=== PATIENT | male | born 1970 | race Caucasian/White ===

== ENCOUNTER 2016-03-18 20:29 | Emergency (ER) | payer MEDICAID | END 2016-03-18 21:15 | disposition home or self-care (01) | LOC: D.ER 20:29 | DX: S80.02XA Contusion of left knee, initial encounter (principal); W19.XXXA Unspecified fall, initial encounter; Y93.89 Activity, other specified; Y92.89 Other specified places as the place of occurrence of the external cause ==

== ENCOUNTER 2016-04-01 16:22 | Emergency (ER) | payer MEDICAID ==
[2016-04-01 16:58] LABS: BASOPHILS 0.1 % (0.0-2.0); EOSINOPHILS 2.3 % (0-7); HEMATOCRIT 44.8 % (42.0-54.0); HEMOGLOBIN 14.7 g/dL (13.5-17.5); IMMATURE GRANULOCYTES 0.4 % (0-5); LYMPHOCYTES 31.9 % (15-50); MCH 30.8 pg (26.0-34.0); MCHC 32.8 g/dL (31.0-37.0); MCV 93.7 fL (80.0-100.0); MEAN PLATELET VOLUME 9.8 fL (7.4-10.4); MONOCYTES 11.1 % (2-11); NEUTROPHILS 54.2 % (40-80); PLATELET COUNT 297 10x3/uL (130-400); RBC 4.78 10x6/uL (4.20-6.10); WBC 10.2 10x3/uL (4.8-10.8)
[2016-04-01 16:59] LABS: APPEARANCE CLEAR (CLEAR); BILIRUBIN NEGATIVE (NEGATIVE); COLOR YELLOW (YELLOW); GLUCOSE NEGATIVE (NEGATIVE); KETONE NEGATIVE (NEGATIVE); LEUKOCYTE ESTERASE NEGATIVE (NEGATIVE); NITRITE NEGATIVE (NEGATIVE); PH 6.5 (5.0-6.0); PROTEIN NEGATIVE (NEGATIVE)
[2016-04-01 17:06] LABS: UDS - AMPHET NEGATIVE QUAL (NEGATIVE); UDS - BARB NEGATIVE QUAL (NEGATIVE); UDS - BENZO NEGATIVE QUAL (NEGATIVE); UDS - COCAINE NEGATIVE QUAL (NEGATIVE); UDS - METH NEGATIVE QUAL (NEGATIVE); UDS - OPIATE NEGATIVE QUAL (NEGATIVE); UDS - PCP NEGATIVE QUAL (NEGATIVE); UDS - THC POSITIVE QUAL (NEGATIVE)
[2016-04-01 17:22] LABS: ALBUMIN 3.4 g/dL (3.4-5.0); ALKALINE PHOSPHATASE 116 U/L (46-116); ALT (SGPT) 28 U/L (10-68); BILIRUBIN - TOTAL 0.67 mg/dL (0.2-1.3); CALC OSMOLALITY 281 mosm/kg (275-300); CALCIUM 8.8 mg/dL (8.5-10.1); CARBON DIOXIDE 28.9 mmol/L (21.0-32.0); CHLORIDE - SERUM 104 mmol/L (98-107); CREATININE - SERUM 0.8 mg/dL (0.6-1.3); GLUCOSE 111 mg/dL (74-106); POTASSIUM - SERUM 3.6 mmol/L (3.5-5.1); SODIUM 142 mmol/L (136-145); UREA NITROGEN 6 mg/dL (7-18); eGFR NON AFRICAN AMERICAN > 90 mL/min (90-120)
== END 2016-04-01 22:45 | disposition short-term general hospital (02) ==
LOC: D.ER 16:22
PROVIDERS: Emergency Medicine
DX: F23 Brief psychotic disorder (principal); R45.851 Suicidal ideations; F31.9 Bipolar disorder, unspecified; F17.200 Nicotine dependence, unspecified, uncomplicated

== ENCOUNTER 2016-11-27 09:45 | Emergency (ER) | payer MEDICAID | END 2016-11-27 10:34 | disposition home or self-care (01) | LOC: D.ER 09:45 | DX: Z87.09 Personal history of other diseases of the respiratory system (principal); J06.9 Acute upper respiratory infection, unspecified; J20.9 Acute bronchitis, unspecified; F17.200 Nicotine dependence, unspecified, uncomplicated ==

== ENCOUNTER 2017-07-03 20:05 | Emergency (ER) | payer MEDICAID ==
[2017-07-03 21:05] LABS: BASOPHILS 0.2 % (0-2); EOSINOPHILS 0.7 % (0-7); HEMATOCRIT 46.9 % (42.0-54.0); HEMOGLOBIN 16.1 g/dL (13.5-17.5); IMMATURE GRANULOCYTES 0.4 % (0-5); LYMPHOCYTES 16.1 % (15-50); MCH 31.5 pg (26.0-34.0); MCHC 34.3 g/dL (31.0-37.0); MCV 91.8 fL (80.0-100.0); MEAN PLATELET VOLUME 9.9 fL (7.4-10.4); MONOCYTES 7.5 % (2-11); NEUTROPHILS 75.1 % (40-80); PLATELET COUNT 261 10x3/uL (130-400); RBC 5.11 10x6/uL (4.20-6.10); RDW 13.1 % (11.5-14.5); WBC 19.2 10x3/uL (4.8-10.8)
== END 2017-07-03 22:18 | disposition home or self-care (01) ==
LOC: D.ER 20:05
PROVIDERS: Emergency Medicine
DX: J20.9 Acute bronchitis, unspecified (principal); F17.200 Nicotine dependence, unspecified, uncomplicated

== ENCOUNTER 2017-09-13 12:00 | Emergency (ER) | payer MEDICAID ==
[~2017-09-13] VITALS: Ht 177.8 cm; Wt 86.2 kg
[2017-09-13 12:13] VITALS: Ht 177.8 cm; Wt 86.2 kg
[2017-09-13] MEDS ORDERED: VALIUM10 MG PO (12:34)
[2017-09-13] MEDS ORDERED: PROZAC20 MG (12:34)
[2017-09-13] MEDS ORDERED: REXULTI1 MG (12:41)
[2017-09-13] MEDS ORDERED: BENZTROPINE MESY1 MG (12:42)
[2017-09-13] MEDS ORDERED: THORAZINE50 MG (12:43)
[2017-09-13 12:55] LABS: BASOPHILS 0.2 % (0-2); EOSINOPHILS 0.7 % (0-7); HEMATOCRIT 46.1 % (42.0-54.0); HEMOGLOBIN 15.8 g/dL (13.5-17.5); IMMATURE GRANULOCYTES 0.4 % (0-5); LYMPHOCYTES 19.4 % (15-50); MCH 31.4 pg (26.0-34.0); MCHC 34.3 g/dL (31.0-37.0); MCV 91.7 fL (80.0-100.0); MEAN PLATELET VOLUME 10.2 fL (7.4-10.4); MONOCYTES 8.9 % (2-11); NEUTROPHILS 70.4 % (40-80); PLATELET COUNT 261 10x3/uL (130-400); RBC 5.03 10x6/uL (4.20-6.10); RDW 13.2 % (11.5-14.5); WBC 11.3 10x3/uL (4.8-10.8)
[2017-09-13 13:15] LABS: ALBUMIN 3.7 g/dL (3.4-5.0); ALKALINE PHOSPHATASE 94 U/L (46-116); ALT (SGPT) 16 U/L (10-68); BILIRUBIN - TOTAL 0.87 mg/dL (0.2-1.3); CALC OSMOLALITY 273 mosm/kg (275-300); CARBON DIOXIDE 28.1 mmol/L (21.0-32.0); CHLORIDE - SERUM 102 mmol/L (98-107); CREATININE - SERUM 0.9 mg/dL (0.6-1.3); GLUCOSE 87 mg/dL (74-106); POTASSIUM - SERUM 3.4 mmol/L (3.5-5.1); PROTEIN - SERUM 7.5 g/dL (6.4-8.2); SODIUM 137 mmol/L (136-145); UREA NITROGEN 14 mg/dL (7-18); eGFR NON AFRICAN AMERICAN > 90 mL/min (90-120)
[2017-09-13 15:55] LABS: UDS - AMPHET POSITIVE QUAL (NEGATIVE); UDS - BARB NEGATIVE QUAL (NEGATIVE); UDS - BENZO POSITIVE QUAL (NEGATIVE); UDS - COCAINE NEGATIVE QUAL (NEGATIVE); UDS - OPIATE NEGATIVE QUAL (NEGATIVE); UDS - PCP NEGATIVE QUAL (NEGATIVE); UDS - THC POSITIVE QUAL (NEGATIVE)
[2017-09-13 16:00] LABS: APPEARANCE CLEAR (CLEAR); BILIRUBIN 1+ (NEGATIVE); COLOR AMBER (YELLOW); GLUCOSE NEGATIVE (NEGATIVE); KETONE LARGE mg/dL (NEGATIVE); NITRITE NEGATIVE (NEGATIVE); PROTEIN NEGATIVE (NEGATIVE)
[2017-09-13 16:01] LABS: BACTERIA FEW /hpf (NONE SEEN); MUCUS <1+ /lpf (NONE SEEN); RED CELLS - URINE 0-5 /hpf (0-5); WHITE CELLS - URINE 0-5 /hpf (0-5)
[2017-09-13 21:36] VITALS: BP 98/60
== END 2017-09-13 22:10 ==
LOC: D.ER 12:00
PROVIDERS: Emergency Medicine
DX: R45.850 Homicidal ideations (principal); F20.9 Schizophrenia, unspecified; F17.200 Nicotine dependence, unspecified, uncomplicated

== ENCOUNTER 2017-10-07 15:03 | Emergency (ER) | payer MEDICAID ==
[~2017-10-07] VITALS: Ht 177.8 cm; Wt 72.7 kg
[~2017-10-07 15:03] MED LIST: BENZTROPINE MESY1 MG; PROZAC20 MG; REXULTI1 MG; THORAZINE50 MG; VALIUM10 MG PO
[2017-10-07 15:05] VITALS: Ht 177.8 cm; Wt 72.7 kg
[2017-10-07 15:35] LABS: APPEARANCE HAZY (CLEAR); BILIRUBIN 2+ (NEGATIVE); COLOR ORANGE (YELLOW); GLUCOSE NEGATIVE (NEGATIVE); KETONE MODERATE mg/dL (NEGATIVE); NITRITE NEGATIVE (NEGATIVE); PROTEIN NEGATIVE (NEGATIVE)
[2017-10-07 15:36] LABS: RED CELLS - URINE 0-5 /hpf (0-5)
[2017-10-07 15:37] LABS: BACTERIA FEW /hpf (NONE SEEN); MUCUS <1+ /lpf (NONE SEEN)
[2017-10-07 15:46] LABS: UDS - AMPHET POSITIVE QUAL (NEGATIVE); UDS - BARB NEGATIVE QUAL (NEGATIVE); UDS - BENZO POSITIVE QUAL (NEGATIVE); UDS - COCAINE NEGATIVE QUAL (NEGATIVE); UDS - OPIATE NEGATIVE QUAL (NEGATIVE); UDS - PCP NEGATIVE QUAL (NEGATIVE); UDS - THC POSITIVE QUAL (NEGATIVE)
[2017-10-07 15:51] LABS: BASOPHILS 0.1 % (0-2); EOSINOPHILS 0.8 % (0-7); HEMATOCRIT 48.8 % (42.0-54.0); HEMOGLOBIN 16.8 g/dL (13.5-17.5); IMMATURE GRANULOCYTES 0.3 % (0-5); LYMPHOCYTES 18.3 % (15-50); MCH 31.5 pg (26.0-34.0); MCHC 34.4 g/dL (31.0-37.0); MCV 91.6 fL (80.0-100.0); MEAN PLATELET VOLUME 10.4 fL (7.4-10.4); MONOCYTES 10.9 % (2-11); NEUTROPHILS 69.6 % (40-80); PLATELET COUNT 269 10x3/uL (130-400); RBC 5.33 10x6/uL (4.20-6.10); RDW 13.4 % (11.5-14.5)
[2017-10-07 16:13] LABS: ALBUMIN 4.1 g/dL (3.4-5.0); ANION GAP 15.3 mmol/L (8-16); BILIRUBIN - TOTAL 1.84 mg/dL (0.2-1.3); CALCIUM 9.2 mg/dL (8.5-10.1); CARBON DIOXIDE 27.8 mmol/L (21.0-32.0); CREATININE - SERUM 1.2 mg/dL (0.6-1.3); POTASSIUM - SERUM 4.1 mmol/L (3.5-5.1)
[2017-10-08 07:21] VITALS: BP 101/076
== END 2017-10-08 07:23 ==
LOC: D.ER 15:03
PROVIDERS: Family Medicine
DX: R45.851 Suicidal ideations (principal); F20.9 Schizophrenia, unspecified; F17.200 Nicotine dependence, unspecified, uncomplicated

== ENCOUNTER 2017-10-10 16:04 | Emergency (ER) | payer MEDICAID ==
[~2017-10-10] VITALS: Ht 177.8 cm; Wt 81.6 kg
[2017-10-10 16:12] VITALS: Ht 177.8 cm; Wt 81.6 kg
[2017-10-10 16:34] LABS: BASOPHILS 0.2 % (0-2); EOSINOPHILS 1.4 % (0-7); HEMATOCRIT 44.2 % (42.0-54.0); HEMOGLOBIN 15.3 g/dL (13.5-17.5); IMMATURE GRANULOCYTES 0.2 % (0-5); MCH 31.4 pg (26.0-34.0); MCHC 34.6 g/dL (31.0-37.0); MCV 90.6 fL (80.0-100.0); MEAN PLATELET VOLUME 10.6 fL (7.4-10.4); NEUTROPHILS 60.2 % (40-80); RBC 4.88 10x6/uL (4.20-6.10); RDW 13.2 % (11.5-14.5); WBC 8.9 10x3/uL (4.8-10.8)
[2017-10-10 16:36] LABS: PLATELET COUNT 208 10x3/uL (130-400)
[2017-10-10 16:41] LABS: UDS - AMPHET NEGATIVE QUAL (NEGATIVE); UDS - BARB NEGATIVE QUAL (NEGATIVE); UDS - BENZO POSITIVE QUAL (NEGATIVE); UDS - COCAINE NEGATIVE QUAL (NEGATIVE); UDS - OPIATE NEGATIVE QUAL (NEGATIVE); UDS - PCP NEGATIVE QUAL (NEGATIVE); UDS - THC POSITIVE QUAL (NEGATIVE)
[2017-10-10 16:50] LABS: ALBUMIN 3.5 g/dL (3.4-5.0); ALKALINE PHOSPHATASE 88 U/L (46-116); ALT (SGPT) 19 U/L (10-68); BILIRUBIN - TOTAL 0.43 mg/dL (0.2-1.3); CALC OSMOLALITY 276 mosm/kg (275-300); CALCIUM 8.5 mg/dL (8.5-10.1); CARBON DIOXIDE 25.8 mmol/L (21.0-32.0); CHLORIDE - SERUM 103 mmol/L (98-107); CREATININE - SERUM 1.1 mg/dL (0.6-1.3); GLUCOSE 110 mg/dL (74-106); POTASSIUM - SERUM 4.1 mmol/L (3.5-5.1); SODIUM 138 mmol/L (136-145); UREA NITROGEN 13 mg/dL (7-18); eGFR NON AFRICAN AMERICAN 76 mL/min (90-120)
[2017-10-10 16:53] LABS: APPEARANCE CLEAR (CLEAR); BILIRUBIN NEGATIVE (NEGATIVE); COLOR YELLOW (YELLOW); GLUCOSE NEGATIVE (NEGATIVE); KETONE NEGATIVE (NEGATIVE); NITRITE NEGATIVE (NEGATIVE); PROTEIN NEGATIVE (NEGATIVE); UROBILINOGEN NORMAL (NORMAL)
[2017-10-10 18:35] VITALS: BP 125/084
== END 2017-10-10 18:37 | disposition left against medical advice (07) ==
LOC: D.ER 16:04
PROVIDERS: Family Medicine
DX: Z76.5 Malingerer [conscious simulation] (principal); R45.850 Homicidal ideations; R45.851 Suicidal ideations; F17.200 Nicotine dependence, unspecified, uncomplicated

== ENCOUNTER 2017-12-06 08:57 | Emergency (ER) | payer MEDICAID ==
[~2017-12-06] VITALS: Ht 177.8 cm; Wt 81.8 kg
[2017-12-06 09:02] VITALS: Ht 177.8 cm; Wt 81.8 kg
[2017-12-06] MEDS ORDERED: SEROQUEL200 MG PO (09:04)
[2017-12-06] MEDS ORDERED: HYDROCODON-ACE1 EAC7 PO (09:04)
[2017-12-06] MEDS ORDERED: TORADOL10 MG PO (11:20)
[2017-12-06 12:26] VITALS: BP 113/84
== END 2017-12-06 12:27 | disposition home or self-care (01) ==
LOC: D.ER 08:57
DX: M54.2 Cervicalgia (principal); Z86.59 Personal history of other mental and behavioral disorders; F17.200 Nicotine dependence, unspecified, uncomplicated

== ENCOUNTER 2017-12-16 17:39 | Emergency (ER) | payer MEDICAID ==
[~2017-12-16] VITALS: Ht 177.8 cm; Wt 76.4 kg
[~2017-12-16 17:39] MED LIST changes: +HYDROCODON-ACE1 EAC7 PO; +SEROQUEL200 MG PO; +TORADOL10 MG PO
[2017-12-16 17:43] VITALS: Ht 177.8 cm; Wt 76.4 kg
[2017-12-16] MEDS ORDERED: VALIUM10 MG PO (17:45)
[2017-12-16 18:23] LABS: APPEARANCE CLEAR (CLEAR); BILIRUBIN 1+ (NEGATIVE); COLOR DK YELLOW (YELLOW); GLUCOSE NEGATIVE (NEGATIVE); KETONE NEGATIVE (NEGATIVE); NITRITE NEGATIVE (NEGATIVE); PROTEIN NEGATIVE (NEGATIVE); SPECIFIC GRAVITY 1.025 (1.005-1.020)
[2017-12-16 18:24] LABS: BACTERIA MODERATE /hpf (NONE SEEN); EPITHELIAL CELLS 0-5 /hpf (0-5); WHITE CELLS - URINE 0-5 /hpf (0-5)
[2017-12-16 18:33] LABS: BASOPHILS 0.2 % (0-2); EOSINOPHILS 1.6 % (0-7); HEMATOCRIT 45.1 % (42.0-54.0); HEMOGLOBIN 15.9 g/dL (13.5-17.5); IMMATURE GRANULOCYTES 0.4 % (0-5); LYMPHOCYTES 24.4 % (15-50); MCH 32.1 pg (26.0-34.0); MCHC 35.3 g/dL (31.0-37.0); MCV 90.9 fL (80.0-100.0); MEAN PLATELET VOLUME 10.3 fL (7.4-10.4); MONOCYTES 11.2 % (2-11); NEUTROPHILS 62.2 % (40-80); RBC 4.96 10x6/uL (4.20-6.10); RDW 13.2 % (11.5-14.5); WBC 11.4 10x3/uL (4.8-10.8)
[2017-12-16 18:35] LABS: PLATELET COUNT 284 10x3/uL (130-400)
[2017-12-16 18:38] LABS: ALBUMIN 3.5 g/dL (3.4-5.0); ALKALINE PHOSPHATASE 95 U/L (46-116); ALT (SGPT) 22 U/L (10-68); BILIRUBIN - TOTAL 0.58 mg/dL (0.2-1.3); CALC OSMOLALITY 280 mosm/kg (275-300); CALCIUM 9.1 mg/dL (8.5-10.1); CARBON DIOXIDE 22.2 mmol/L (21.0-32.0); CHLORIDE - SERUM 105 mmol/L (98-107); CREATININE - SERUM 1.1 mg/dL (0.6-1.3); GLUCOSE 114 mg/dL (74-106); POTASSIUM - SERUM 3.9 mmol/L (3.5-5.1); PROTEIN - SERUM 7.1 g/dL (6.4-8.2); SODIUM 140 mmol/L (136-145); UREA NITROGEN 14 mg/dL (7-18); eGFR NON AFRICAN AMERICAN 76 mL/min (90-120)
[2017-12-16 19:29] LABS: UDS - AMPHET NEGATIVE QUAL (NEGATIVE); UDS - BARB NEGATIVE QUAL (NEGATIVE); UDS - BENZO NEGATIVE QUAL (NEGATIVE); UDS - COCAINE NEGATIVE QUAL (NEGATIVE); UDS - OPIATE NEGATIVE QUAL (NEGATIVE); UDS - PCP NEGATIVE QUAL (NEGATIVE); UDS - THC POSITIVE QUAL (NEGATIVE)
[2017-12-16 21:42] VITALS: BP 138/50
== END 2017-12-16 21:51 ==
LOC: D.ER 17:39
PROVIDERS: Emergency Medicine
DX: F20.0 Paranoid schizophrenia (principal); F17.200 Nicotine dependence, unspecified, uncomplicated

== ENCOUNTER 2018-01-06 05:43 | Emergency (ER) | payer MEDICAID ==
[~2018-01-06] VITALS: Ht 177.8 cm; Wt 95.5 kg
[~2018-01-06 05:43] MED LIST changes: -PROZAC20 MG; +PROZAC20 MG PO
[2018-01-06 05:49] VITALS: Ht 177.8 cm; Wt 95.5 kg
[2018-01-06] MEDS ORDERED: ALBUTEROL SULF8.5 GM INH (05:57)
[2018-01-06 06:22] LABS: UDS - AMPHET POSITIVE QUAL (NEGATIVE); UDS - BARB NEGATIVE QUAL (NEGATIVE); UDS - BENZO POSITIVE QUAL (NEGATIVE); UDS - COCAINE NEGATIVE QUAL (NEGATIVE); UDS - OPIATE NEGATIVE QUAL (NEGATIVE); UDS - PCP NEGATIVE QUAL (NEGATIVE); UDS - THC POSITIVE QUAL (NEGATIVE)
[2018-01-06 06:40] LABS: CALC OSMOLALITY 270 mosm/kg (275-300); CALCIUM 9.1 mg/dL (8.5-10.1); CARBON DIOXIDE 27.3 mmol/L (21.0-32.0); CHLORIDE - SERUM 99 mmol/L (98-107); GLUCOSE 98 mg/dL (74-106); POTASSIUM - SERUM 3.6 mmol/L (3.5-5.1); SODIUM 136 mmol/L (136-145); THYROID STIMULATING HORMONE 1.22 uIU/mL (0.36-3.74); UREA NITROGEN 9 mg/dL (7-18); eGFR NON AFRICAN AMERICAN 85 mL/min (90-120)
[2018-01-06 06:53] LABS: APPEARANCE CLEAR (CLEAR); COLOR YELLOW (YELLOW); GLUCOSE NEGATIVE (NEGATIVE); NITRITE NEGATIVE (NEGATIVE); PROTEIN 2+ mg/dL (NEGATIVE)
[2018-01-06 06:54] LABS: BILIRUBIN NEGATIVE (NEGATIVE); KETONE MODERATE mg/dL (NEGATIVE); RED CELLS - URINE 0-5 /hpf (0-5); WHITE CELLS - URINE 0-5 /hpf (0-5)
[2018-01-06 07:18] LABS: BASOPHILS 0.2 % (0-2); EOSINOPHILS 1.1 % (0-7); HEMATOCRIT 47.6 % (42.0-54.0); HEMOGLOBIN 16.7 g/dL (13.5-17.5); IMMATURE GRANULOCYTES 0.5 % (0-5); LYMPHOCYTES 16.5 % (15-50); MCH 32.4 pg (26.0-34.0); MCHC 35.1 g/dL (31.0-37.0); MCV 92.4 fL (80.0-100.0); MEAN PLATELET VOLUME 10.4 fL (7.4-10.4); MONOCYTES 9.6 % (2-11); NEUTROPHILS 72.1 % (40-80); PLATELET COUNT 286 10x3/uL (130-400); RBC 5.15 10x6/uL (4.20-6.10); RDW 13.4 % (11.5-14.5); WBC 12.7 10x3/uL (4.8-10.8)
[2018-01-06 07:29] LABS: ALBUMIN 4.1 g/dL (3.4-5.0); ALKALINE PHOSPHATASE 108 U/L (46-116); ALT (SGPT) 34 U/L (10-68); BILIRUBIN - DIRECT 0.22 mg/dL (0.00-0.30); BILIRUBIN - INDIRECT 1.18 mg/dL (0.00-1.00); PROTEIN - SERUM 8.2 g/dL (6.4-8.2)
[2018-01-06 16:49] VITALS: BP 120/84
== END 2018-01-06 19:34 | disposition other institution (70) ==
LOC: D.ER 05:43
PROVIDERS: Emergency Medicine; Family Medicine
DX: F23 Brief psychotic disorder (principal); F12.10 Cannabis abuse, uncomplicated; F15.10 Other stimulant abuse, uncomplicated; F13.10 Sedative, hypnotic or anxiolytic abuse, uncomplicated; R45.850 Homicidal ideations; F17.200 Nicotine dependence, unspecified, uncomplicated

== ENCOUNTER 2018-01-19 13:21 | Emergency (ER) | payer MEDICAID ==
[~2018-01-19] VITALS: Ht 177.8 cm; Wt 85.9 kg
[~2018-01-19 13:21] MED LIST changes: +ALBUTEROL SULF8.5 GM INH
[2018-01-19 13:27] VITALS: Ht 177.8 cm; Wt 85.9 kg
[2018-01-19 14:02] LABS: BASOPHILS 0.2 % (0-2); EOSINOPHILS 1.7 % (0-7); HEMATOCRIT 43.8 % (42.0-54.0); HEMOGLOBIN 15.2 g/dL (13.5-17.5); IMMATURE GRANULOCYTES 0.4 % (0-5); LYMPHOCYTES 22.2 % (15-50); MCH 32.4 pg (26.0-34.0); MCHC 34.7 g/dL (31.0-37.0); MCV 93.4 fL (80.0-100.0); MEAN PLATELET VOLUME 10.2 fL (7.4-10.4); MONOCYTES 12.7 % (2-11); NEUTROPHILS 62.8 % (40-80); PLATELET COUNT 244 10x3/uL (130-400); RBC 4.69 10x6/uL (4.20-6.10); RDW 13.4 % (11.5-14.5)
[2018-01-19 14:15] LABS: ALBUMIN 3.6 g/dL (3.4-5.0); ALKALINE PHOSPHATASE 98 U/L (46-116); ALT (SGPT) 38 U/L (10-68); BILIRUBIN - TOTAL 0.41 mg/dL (0.2-1.3); CALC OSMOLALITY 271 mosm/kg (275-300); CALCIUM 8.7 mg/dL (8.5-10.1); CARBON DIOXIDE 21.9 mmol/L (21.0-32.0); CHLORIDE - SERUM 102 mmol/L (98-107); CREATININE - SERUM 0.9 mg/dL (0.6-1.3); GLUCOSE 107 mg/dL (74-106); POTASSIUM - SERUM 3.8 mmol/L (3.5-5.1); PROTEIN - SERUM 7.2 g/dL (6.4-8.2); SODIUM 135 mmol/L (136-145); UREA NITROGEN 17 mg/dL (7-18); eGFR NON AFRICAN AMERICAN > 90 mL/min (90-120)
[2018-01-19 14:31] LABS: APPEARANCE CLEAR (CLEAR); BILIRUBIN NEGATIVE (NEGATIVE); COLOR YELLOW (YELLOW); GLUCOSE NEGATIVE (NEGATIVE); KETONE NEGATIVE (NEGATIVE); NITRITE NEGATIVE (NEGATIVE); PROTEIN NEGATIVE (NEGATIVE); SPECIFIC GRAVITY 1.015 (1.005-1.020); UROBILINOGEN NORMAL (NORMAL)
[2018-01-19] MEDS ORDERED: CHLORPROMAZINE200 MG PO (14:33)
[2018-01-19] MEDS ORDERED: ZYPREXA20 MG PO (14:35)
[2018-01-19 14:38] LABS: UDS - AMPHET NEGATIVE QUAL (NEGATIVE); UDS - BARB NEGATIVE QUAL (NEGATIVE); UDS - BENZO POSITIVE QUAL (NEGATIVE); UDS - COCAINE NEGATIVE QUAL (NEGATIVE); UDS - OPIATE NEGATIVE QUAL (NEGATIVE); UDS - PCP NEGATIVE QUAL (NEGATIVE); UDS - THC POSITIVE QUAL (NEGATIVE)
[2018-01-19 18:36] VITALS: BP 130/80
== END 2018-01-19 18:52 ==
LOC: D.ER 13:21
PROVIDERS: Emergency Medicine
DX: R45.851 Suicidal ideations (principal); F41.9 Anxiety disorder, unspecified; F32.9 Major depressive disorder, single episode, unspecified; F17.200 Nicotine dependence, unspecified, uncomplicated

== ENCOUNTER 2018-01-30 08:50 | Inpatient (IN) | payer MEDICAID ==
[~2018-01-30] VITALS: Ht 177.8 cm; Wt 90.9 kg
--- NOTE | ~2018-01-30 | MORECARE ---
CASE MANAGEMENT DISCHARGE SUMMARY PATIENT: GENO RECINOS UNIT: [id number] ADM DATE: 01/30/18 AGE: 47 : 68 SEX: M ROOM/BED: D.2223 AUTHOR: CODIE,DOC PHYSICIAN: REFERRING PHYSICIAN: FEDERICO SANTACRUZ MD DATE OF SERVICE: 01/31/18 Discharge Plan Patient Name: GENO RECINOS Facility: [facility]:[place] : 1970 Planned Disposition: Anticipated Discharge Date: Discharge Date: Expected LOS: Initial Reviewer: [email or web address] Initial Review Date: 01/30/2018 Generated: 01/31/18 4:12 pm Comments DCP- Discharge Planning Updated by [email or web address]: Rachna Varela on 01/31/18 2:[address] CM received call back from Dr. Azar. He informed CM that he attempted to see the patient in , but it was not the right patient. Dr. Azar informed CM that he will attempt to see patient in the morning. CM contacted Dr. Santacruz and notified him of status with Dr. Azar's consult. Dr Santacruz gave CM orders for clear liquid diet. CM will continue to follow and assist as needed. DCP- Discharge Planning Updated by [id number]: Prema Michelle on 01/31/18 1:[address] CM placed follow up call to Dr. Azar's office as no call returned yet. Miriam with Dr. Azar informed CM that the was in with a patient right now and would call CM back soon. MEREDITH informed Miriam that the patient is moving from E01 to 2223. Miriam verbalized understanding. CM will continue to follow. DCP- Discharge Planning Updated by [email or web address]: Prema Michelle on 01/31/18 11:[address] CM could not find any documentation in [facility] that Dr. Azar had been notified of consult order. MEREDITH called Dr. Azar's office and spoke with Miriam. Miriam informed CM that she had received a call from someone in the ER yesterday about the consult, but she informed them that Dr. Azar was not senior controls technician this week and he would not be in the office until 13:00. Miriam stated she informed that person to call their office back if the patient was still there at 13:00 and their office did not receive any further calls. MEREDITH informed Miriam that the patient is still here in the hospital. Informed Miriam of patient's Soft Tissue Neck CT results and WBC results. Informed Miriam of Dr. Santacruz's request for ETA and if patient can have liquids as he is NPO. Miriam took MEREDITH's phone number and stated she would have Dr. Azar call me back. MEREDITH informed Lesly Massey nurse wellness manager of status of consult. Last DP export: 01/31/18 1:18 Patient Name: GENO RECINOS Page [id number] at 1512 All edits/amendments must be made on the electronic document DICTATION DATE: 01/31/181511 INTERVENTIONAL RADIOLOGY TECH: DENYS 01/31/181511 RPT#: [id number] DC DATE: STATUS: ADM IN [facility] [address] [place] [address] END OF REPORT
--- NOTE | ~2018-01-30 | MORECARE ---
CASE MANAGEMENT DISCHARGE SUMMARY PATIENT: GENO RECINOS UNIT: [id number] ADM DATE: 01/30/18 AGE: 47 : 68 SEX: M ROOM/BED: D.E01 AUTHOR: KO MACKAY PHYSICIAN: REFERRING PHYSICIAN: FEDERICO SANTACRUZ MD DATE OF SERVICE: 01/31/18 Discharge Plan Patient Name: GENO RECINOS [facility] : 1970 Planned Disposition: Anticipated Discharge Date: Discharge Date: Expected LOS: Initial Reviewer: [email or web address] Initial Review Date: 01/30/2018 Generated: 01/31/18 1:24 pm DCP- Discharge Planning Updated by [email or web address]: Prema Michelle on 01/31/18 11:[address] CM could not find any documentation in [facility] that [facility] Azar had been notified of consult order. MEREDITH called Dr. Azar's office and spoke with Miriam. Miriam informed MEREDITH that she had received a call from someone in the ER yesterday about the consult, but she informed them that Dr. Azar was not construction project manager this week and he would not be in the office until 13:00. Miriam stated she informed that person to call their office back if the patient was still there at 13:00 and their office did not receive any further calls. MEREDITH informed Miriam that the patient is still here in the hospital. Informed Miriam of patient's Soft Tissue Neck CT results and WBC results. Informed Miriam of Dr. Santacruz's request for ETA and if patient can have liquids as he is NPO. Miriam took 's phone number and stated she would have Dr. Azar call me back. MEREDITH informed Lesly Massey nurse gas operation manager of status of consult. Last DP export: 01/31/18 11:17 Patient Name: GENO RECINOS Page [id number] at 1225 All edits/amendments must be made on the electronic document DICTATION DATE: 01/31/18 1224 BARBACK: DENYS 01/31/18 1224 RPT#: [id number] DC DATE: STATUS: ADM IN [facility] [address] [place] [address] END OF REPORT
--- NOTE | ~2018-01-30 | MORECARE ---
CASE MANAGEMENT DISCHARGE SUMMARY PATIENT: GENO RECINOS UNIT: [id number] ADM DATE: 01/30/18 AGE: 47 : 68 SEX: M ROOM/BED: D.2223 AUTHOR: CODIE,DOC PHYSICIAN: REFERRING PHYSICIAN: FEDERICO SANTACRUZ MD DATE OF SERVICE: 02/04/18 Discharge Plan Patient Name: GENO RECINOS Facility: [facility]:[place] : 1970 Planned Disposition: Home Anticipated Discharge Date: Discharge Date: 02/02/2018 Expected LOS: 0 Initial Reviewer: [email or web address] Initial Review Date: 01/30/2018 Generated: 02/04/18 5:34 pm Comments DCP- Discharge Planning Updated by [email or web address]: Rachna Varela on 02/01/18 3:[address] Patient Name: GENO RECINOS Admission Status: ER Accout number: [id number] Admission Date: 01-30-2018 : 1970 Admission Diagnosis: Attending: FEDERICO SANTACRUZ Current LOS: 2 Anticipated DC Date: Planned Disposition: Home Primary Insurance: MEDICAID [place] Discharge Planning Comments: CM met with patient to discuss discharge planning, he is alone in the room. States he is independent with all ADL's. States he does not drive. States he takes a bus or taxi when he needs to go somewhere. States he does use the [employer] bus and knows to call 48 hours in advance for appointments. States he will either take the [facility] or taxi when discharged. Declines need for home health. States he has [facility] that come in 3 hours a day for personal care. No needs identified at this time. CM will continue to follow and assist with discharge planning/needs. Can Maker: Rachna Varela DCP- Discharge Planning Updated by [email or web address]: Rachna Varela on 01/31/18 2:[address] CM received call back from Dr. Azar. He informed CM that he attempted to see the patient in , but it was not the right patient. Dr. Azar informed CM that he will attempt to see patient in the morning. CM contacted Dr. Santacruz and notified him of status with Dr. Azar's consult. Dr Santacruz gave CM orders for clear liquid diet. CM will continue to follow and assist as needed. DCP- Discharge Planning Updated by [email or web address]: Prema Michelle on 01/31/18 1:[address] CM placed follow up call to Dr. Azar's office as no call returned yet. Miriam with Dr. Azar informed CM that the was in with a patient right now and would call CM back soon. MEREDITH informed Miriam that the patient is moving from E01 to 2223. Miriam verbalized understanding. CM will continue to follow. DCP- Discharge Planning Updated by [email or web address]: Prema Michelle on 01/31/18 11:[address] CM could not find any documentation in [facility] that Dr. Azar had been notified of consult order. MEREDITH called Dr. Azar's office and spoke with Miriam. Miriam informed CM that she had received a call from someone in the ER yesterday about the consult, but she informed them that Dr. Azar was not television presenter this week and he would not be in the office until 13:00. Miriam stated she informed that person to call their office back if the patient was still there at 13:00 and their office did not receive any further calls. MEREDITH informed Miriam that the patient is still here in the hospital. Informed Miriam of patient's Soft Tissue Neck CT results and WBC results. Informed Miriam of Dr. Santacruz's request for ETA and if patient can have liquids as he is NPO. Miriam took CM's phone number and stated she would have Dr. Azar call me back. MEREDITH informed Lesly Massey nurse ecommerce project manager of status of consult. DCPIA - Discharge Planning Initial Assessment Updated by [id number]: Rachna Varela on 02/01/18 4:45 pm * Is the patient Alert and Oriented? Yes * How many steps to enter\exit or inside your home? 0/0 * PCP No PCP * Pharm[facility] * Preadmission Environment Home Alone * ADLs Independent * Equipment None * Verbal permission to speak to the caregivers and representatives has been obtained from the patient. N/A * Community resources currently utilized None * Additional services required to return to the preadmission environment? No * Can the patient safely return to the preadmission environment? Yes * Has this patient been hospitalized within the prior 30 days at any hospital? No Last DP export: 02/01/18 3:55 Patient Name: GENO RECINOS Page [id number] at 1634 All edits/amendments must be made on the electronic document DICTATION DATE: 02/04/181632 BLOOD BANK LABORATORY TECHNOLOGIST: DENYS 02/04/181632 RPT#: [id number] DC DATE:02/02/18 STATUS: DIS IN [facility] [address] [place] [address] END OF REPORT
--- NOTE | ~2018-01-30 | MORECARE ---
CASE MANAGEMENT DISCHARGE SUMMARY PATIENT: GENO RECINOS UNIT: [id number] ADM DATE: 01/30/18 AGE: 47 : 68 SEX: M ROOM/BED: D.2223 AUTHOR: CODIE,DOC PHYSICIAN: REFERRING PHYSICIAN: FEDERICO SANTACRUZ MD DATE OF SERVICE: 02/01/18 Discharge Plan Patient Name: GENO RECINOS Facility: [facility]:[place] : 1970 Planned Disposition: Home Anticipated Discharge Date: Discharge Date: Expected LOS: Initial Reviewer: [email or web address] Initial Review Date: 01/30/2018 Generated: 02/01/18 5:46 pm Comments DCP- Discharge Planning Updated by [email or web address]: Rachna Varela on 01/31/18 2:[address] CM received call back from Dr. Azar. He informed CM that he attempted to see the patient in , but it was not the right patient. Dr. Azar informed CM that he will attempt to see patient in the morning. CM contacted Dr. Santacruz and notified him of status with Dr. Azar's consult. Dr Santacruz gave CM orders for clear liquid diet. CM will continue to follow and assist as needed. DCP- Discharge Planning Updated by [email or web address]: Prema Michelle on 01/31/18 1:[address] CM placed follow up call to Dr. Azar's office as no call returned yet. Miriam with Dr. Azar informed CM that the was in with a patient right now and would call CM back soon. MEREDITH informed Miriam that the patient is moving from E01 to 2223. Miriam verbalized understanding. CM will continue to follow. DCP- Discharge Planning Updated by [email or web address]: Prema Michelle on 01/31/18 11:[address] CM could not find any documentation in [facility] that Dr. Azar had been notified of consult order. MEREDITH called Dr. Azar's office and spoke with Miriam. Miriam informed CM that she had received a call from someone in the ER yesterday about the consult, but she informed them that Dr. Azar was not integration software engineer this week and he would not be in the office until 13:00. Miriam stated she informed that person to call their office back if the patient was still there at 13:00 and their office did not receive any further calls. MEREDITH informed Miriam that the patient is still here in the hospital. Informed Miriam of patient's Soft Tissue Neck CT results and WBC results. Informed Miriam of Dr. Santacruz's request for ETA and if patient can have liquids as he is NPO. Miriam took CM's phone number and stated she would have Dr. Azar call me back. CM informed Lesly Massey nurse international account manager of status of consult. DCPIA - Discharge Planning Initial Assessment Updated by [email or web address]: Rachna Varela on 02/01/18 4:45 pm * Is the patient Alert and Oriented? Yes * How many steps to enter\exit or inside your home? 0/0 * PCP No PCP * Pharmacy [facility] * Preadmission Environment Home Alone * ADLs Independent * Equipment None * Verbal permission to speak to the caregivers and representatives has been obtained from the patient. N/A * Community resources currently utilized None * Additional services required to return to the preadmission environment? No * Can the patient safely return to the preadmission environment? Yes * Has this patient been hospitalized within the prior 30 days at any hospital? No Last DP export: 01/31/18 2:12 Patient Name: GENO RECINOS Page [id number] at 1646 All edits/amendments must be made on the electronic document DICTATION DATE: 02/01/181645 RELAY ASSOCIATE: DENYS 02/01/181645 RPT#: [id number] DC DATE: STATUS: ADM IN [facility] [address] [place] [address] END OF REPORT
--- NOTE | ~2018-01-30 | MORECARE ---
CASE MANAGEMENT DISCHARGE SUMMARY PATIENT: GENO RECINOS AIXA UNIT: [id number] ADM DATE: 01/30/18 AGE: 47 : [birth year] SEX: M ROOM/BED: D.E01 AUTHOR: KO MACKAY PHYSICIAN: REFERRING PHYSICIAN: FEDERICO SANTACRUZ MD DATE OF SERVICE: 01/31/18 Discharge Plan Patient Name: GENO RECINOS [facility] [facility] 1970 Planned Disposition: Anticipated Discharge Date: Discharge Date: Expected LOS: Initial Reviewer: [email or web address] Initial Review Date: 01/30/2018 Generated: 01/31/18 1:17 pm Patient Name: GENO RECINOS Page [phone] at 1217 All edits/amendments must be made on the electronic document DICTATION DATE: 01/31/18 1217 CAFE SERVER: DENYS 01/31/18 1217 RPT#: [id number] DC DATE: STATUS: ADM IN [facility] [address] [place] [address] END OF REPORT
--- NOTE | ~2018-01-30 | MORECARE ---
CASE MANAGEMENT DISCHARGE SUMMARY PATIENT: GENO RECINOS UNIT: [id number] ADM DATE: 01/30/18 AGE: 47 : 68 SEX: M ROOM/BED: D.2223 AUTHOR: CODIE,DOC PHYSICIAN: REFERRING PHYSICIAN: FEDERICO SANTACRUZ MD DATE OF SERVICE: 02/01/18 Discharge Plan Patient Name: GENO RECINOS Facility: [facility]:[place] : 1970 Planned Disposition: Home Anticipated Discharge Date: Discharge Date: Expected LOS: Initial Reviewer: [email or web address] Initial Review Date: 01/30/2018 Generated: 02/01/18 5:55 pm Comments DCP- Discharge Planning Updated by [email or web address]: Rachna Varela on 02/01/18 3:[address] Patient Name: GENO RECINOS Admission Status: ER Accout number: [id number] Admission Date: 01-30-2018 : 1970 Admission Diagnosis: Attending: FEDERICO SANTACRUZ Current LOS: 2 Anticipated DC Date: Planned Disposition: Home Primary Insurance: MEDICAID [place] Discharge Planning Comments: CM met with patient to discuss discharge planning, he is alone in the room. States he is independent with all ADL's. States he does not drive. States he takes a bus or taxi when he needs to go somewhere. States he does use the [employer] bus and knows to call 48 hours in advance for appointments. States he will either take the SC[facility] or taxi when discharged. Declines need for home health. States he has [facility] that come in 3 hours a day for personal care. No needs identified at this time. CM will continue to follow and assist with discharge planning/needs. Barn And Property Manager: Rachna Varela DCP- Discharge Planning Updated by [id number]: Rachna Varela on 01/31/18 2:[address] CM received call back from Dr. Azar. He informed CM that he attempted to see the patient in , but it was not the right patient. Dr. Azar informed CM that he will attempt to see patient in the morning. CM contacted Dr. Santacruz and notified him of status with Dr. Azar's consult. Dr Santacruz gave CM orders for clear liquid diet. CM will continue to follow and assist as needed. DCP- Discharge Planning Updated by [id number]: Prema Michelle on 01/31/18 1:[address] CM placed follow up call to Dr. Azar's office as no call returned yet. Miriam with Dr. Azar informed CM that the was in with a patient right now and would call CM back soon. MEREDITH informed Miriam that the patient is moving from E01 to 2223. Miriam verbalized understanding. CM will continue to follow. DCP- Discharge Planning Updated by [email or web address]: Prema Michelle on 01/31/18 11:[address] CM could not find any documentation in [facility] that Dr. Azar had been notified of consult order. MEREDITH called Dr. Azar's office and spoke with Miriam. Miriam informed CM that she had received a call from someone in the ER yesterday about the consult, but she informed them that Dr. Azar was not post tensioning ironworker this week and he would not be in the office until 13:00. Miriam stated she informed that person to call their office back if the patient was still there at 13:00 and their office did not receive any further calls. MEREDITH informed Miriam that the patient is still here in the hospital. Informed Miriam of patient's Soft Tissue Neck CT results and WBC results. Informed Miriam of Dr. Santacruz's request for ETA and if patient can have liquids as he is NPO. Miriam took 's phone number and stated she would have Dr. Azar call me back. MEREDITH informed Lesly Massey nurse research development manager of status of consult. DCPIA - Discharge Planning Initial Assessment Updated by [email or web address]: Rachna Varela on 02/01/18 4:45 pm * Is the patient Alert and Oriented? Yes * How many steps to enter\exit or inside your home? 0/0 * PCP No PCP * [facility] * Preadmission Environment Home Alone * ADLs Independent * Equipment None * Verbal permission to speak to the caregivers and representatives has been obtained from the patient. N/A * Community resources currently utilized None * Additional services required to return to the preadmission environment? No * Can the patient safely return to the preadmission environment? Yes * Has this patient been hospitalized within the prior 30 days at any hospital? No Last DP export: 02/01/18 3:46 Patient Name: GENO RECINOS Page [id number] at 1655 All edits/amendments must be made on the electronic document DICTATION DATE: 02/01/181654 SENIOR LEAD JAVA DEVELOPER: DENYS 02/01/181654 RPT#: [id number] DC DATE: STATUS: ADM IN [facility] [address] [place] [address] END OF REPORT
--- NOTE | ~2018-01-30 | MORECARE ---
CASE MANAGEMENT DISCHARGE SUMMARY PATIENT: GENO RECINOS UNIT: [id number] ADM DATE: 01/30/18 AGE: 47 : 68 SEX: M ROOM/BED: D.2223 AUTHOR: CODIE,DOC PHYSICIAN: REFERRING PHYSICIAN: FEDERICO SANTACRUZ MD DATE OF SERVICE: 01/31/18 Discharge Plan Patient Name: GENO RECINOS Facility: [facility]:[place] : 1970 Planned Disposition: Anticipated Discharge Date: Discharge Date: Expected LOS: Initial Reviewer: [email or web address] Initial Review Date: 01/30/2018 Generated: 01/31/18 3:18 pm Comments DCP- Discharge Planning Updated by [email or web address]: Prema Michelle on 01/31/18 1:[address] CM placed follow up call to Dr. Azar's office as no call returned yet. Miriam with Dr. Azar informed MEREDITH that the was in with a patient right now and would call CM back soon. MEREDITH informed Miriam that the patient is moving from E01 to 2223. Miriam verbalized understanding. MEREDITH will continue to follow. DCP- Discharge Planning Updated by [id number]: Prema Michelle on 01/31/18 11:[address] CM could not find any documentation in [facility] that Dr. Azar had been notified of consult order. MEREDITH called Dr. Azar's office and spoke with Miriam. Miriam informed MEREDITH that she had received a call from someone in the ER yesterday about the consult, but she informed them that Dr. Azar was not instrument/control technician this week and he would not be in the office until 13:00. Miriam stated she informed that person to call their office back if the patient was still there at 13:00 and their office did not receive any further calls. MEREDITH informed Miriam that the patient is still here in the hospital. Informed Miriam of patient's Soft Tissue Neck CT results and WBC results. Informed Miriam of Dr. Santacruz's request for ETA and if patient can have liquids as he is NPO. Miriam took MEREDITH's phone number and stated she would have Dr. Azar call me back. MEREDITH informed Lesly Massey nurse records and information manager of status of consult. Last DP export: 01/31/18 11:25 Patient Name: GENO RECINOS Page [id number] at 1418 All edits/amendments must be made on the electronic document DICTATION DATE: 01/31/181417 CHIEF INFORMATION SECURITY OFFICER: DNEYS 01/31/181417 RPT#: [id number] DC DATE: STATUS: ADM IN [facility] [address] [place] [address] END OF REPORT
--- NOTE | ~2018-01-30 | CN ---
PATIENT NAME:GENO VILLALTA MEDICAL RECORD: [id number] : [birth year] LOCATION:D.MS [id number] ADMIT DATE: 01/30/18 ACCOUNT: [id number] CONSULTING PHYSICIAN: CHERRIE CALDERON MD REFERRING PHYSICIAN: FEDERICO SANTACRUZ MD DATE OF CONSULTATION: 01/31/2018 HISTORY OF PRESENT ILLNESS: Mr. Villalta is a 47-year-old male with a sore throat times 4 days since Sunday. This is a consult on . He presented to the ER with a sore throat and elevated white count. Had a CT, it was a noncontrast, which showed some swelling and he was admitted for that, on IV antibiotics and steroids and so on. PHYSICAL EXAMINATION: GENERAL: He is alert and oriented. He has got a normal voice. No hoarseness. Really in no distress. No problem eating soft foods or swallowing. FACE: Normal, symmetric, no lesions. EYES: Sclerae and conjunctivae are normal. NOSE: No mass, polyps or drainage. ORAL CAVITY AND OROPHARYNX: He has no trismus at all. He has got very small tonsils. He had some peritonsillar cellulitis down the left posterior pharyngeal wall, some erythema, no exudate, soft to palpation. Nothing that felt hard like a tumor or anything and certainly no abscess, just a peritonsillar cellulitis there. NECK: No masses, no adenopathy, nontender. CT: There is some edema, obviously that was noncontrast so not particularly useful. IMPRESSION: Acute pharyngitis. No evidence of an abscess. I would have gotten a contrast CT if I was suspicious of it, but he really looks fine. He is on Rocephin, I am going to add clindamycin to that and keep him n.p.o. after midnight. Check on him in the morning and make sure that he is not a candidate for any kind of incision and drainage. TRANSINT:[id number] Voice Confirmation ID: [id number] DOCUMENT ID: [id number] CHERRIE CALDERON MD at 1818 CC: [id number] DICTATION DATE: 02/01/18 1217 CD STORAGE AND MATERIALS MAKE UP HELPER: 02/01/18 1252 DIS IN 02/02/18 [place] [id number] [place] [address]
[~2018-01-30 08:50] MED LIST changes: +CHLORPROMAZINE200 MG PO; +ZYPREXA20 MG PO
[2018-01-30 11:30] LABS: ALBUMIN 3.7 g/dL (3.4-5.0); ALKALINE PHOSPHATASE 163 U/L (46-116); ALT (SGPT) 94 U/L (10-68); BILIRUBIN - TOTAL 1.35 mg/dL (0.2-1.3); CALC OSMOLALITY 274 mosm/kg (275-300); CALCIUM 10.3 mg/dL (8.5-10.1); CARBON DIOXIDE 28.1 mmol/L (21.0-32.0); CHLORIDE - SERUM 99 mmol/L (98-107); GLUCOSE 130 mg/dL (74-106); POTASSIUM - SERUM 4.3 mmol/L (3.5-5.1); SODIUM 136 mmol/L (136-145); UREA NITROGEN 14 mg/dL (7-18); eGFR NON AFRICAN AMERICAN 85 mL/min (90-120)
[2018-01-30 11:35] LABS: HEMATOCRIT 47.6 % (42.0-54.0); HEMOGLOBIN 16.7 g/dL (13.5-17.5); MCH 32.4 pg (26.0-34.0); MCHC 35.1 g/dL (31.0-37.0); MCV 92.4 fL (80.0-100.0); PLATELET COUNT 292 10x3/uL (130-400); RBC 5.15 10x6/uL (4.20-6.10); RDW 13.4 % (11.5-14.5); WBC 23.7 10x3/uL (4.8-10.8)
[2018-01-30 12:11] LABS: LYMPHOCYTES 8 % (15-50); MONOCYTES 17 % (2-11); NEUTROPHILS 73 % (40-80); PLATELET ESTIMATE NORMAL; ROULEAUX OCC
[2018-01-30 16:03] VITALS: BP 123/89
[2018-01-30 23:50] VITALS: BP 105/70
[2018-01-31 09:57] LABS: BASOPHILS 0 % (0-2); EOSINOPHILS 0.1 % (0-7); HEMATOCRIT 45.7 % (42.0-54.0); IMMATURE GRANULOCYTES 0.6 % (0-5); LYMPHOCYTES 9.7 % (15-50); MCH 31.7 pg (26.0-34.0); MCV 90.7 fL (80.0-100.0); MONOCYTES 11.2 % (2-11); NEUTROPHILS 78.4 % (40-80); PLATELET COUNT 317 10x3/uL (130-400); RBC 5.04 10x6/uL (4.20-6.10); RDW 13.2 % (11.5-14.5); WBC 24.6 10x3/uL (4.8-10.8)
[2018-01-31 10:10] LABS: ALBUMIN 3.3 g/dL (3.4-5.0); ALKALINE PHOSPHATASE 154 U/L (46-116); ALT (SGPT) 85 U/L (10-68); BILIRUBIN - TOTAL 0.64 mg/dL (0.2-1.3); CALC OSMOLALITY 282 mosm/kg (275-300); CALCIUM 9.7 mg/dL (8.5-10.1); CARBON DIOXIDE 25.9 mmol/L (21.0-32.0); CHLORIDE - SERUM 100 mmol/L (98-107); CREATININE - SERUM 0.8 mg/dL (0.6-1.3); GLUCOSE 119 mg/dL (74-106); POTASSIUM - SERUM 4.1 mmol/L (3.5-5.1); PROTEIN - SERUM 8.5 g/dL (6.4-8.2); SODIUM 138 mmol/L (136-145); UREA NITROGEN 28 mg/dL (7-18); eGFR NON AFRICAN AMERICAN > 90 mL/min (90-120)
[2018-01-31 14:56] LABS: APPEARANCE CLEAR (CLEAR); BILIRUBIN NEGATIVE (NEGATIVE); COLOR YELLOW (YELLOW); GLUCOSE NEGATIVE (NEGATIVE); KETONE NEGATIVE (NEGATIVE); NITRITE NEGATIVE (NEGATIVE); PROTEIN TRACE mg/dL (NEGATIVE); SPECIFIC GRAVITY 1.015 (1.005-1.020); UROBILINOGEN NORMAL (NORMAL)
[2018-01-31 14:57] LABS: EPITHELIAL CELLS NSEEN /hpf (0-5); RED CELLS - URINE 0-5 /hpf (0-5); WHITE CELLS - URINE NSEEN /hpf (0-5)
[2018-01-31 16:42] VITALS: BP 140/86; Ht 177.8 cm; Wt 90.9 kg
[2018-01-31 21:55] VITALS: BP 121/72
[2018-02-01 04:27] LABS: BASOPHILS 0.1 % (0-2); EOSINOPHILS 0 % (0-7); HEMATOCRIT 40.8 % (42.0-54.0); HEMOGLOBIN 14.3 g/dL (13.5-17.5); IMMATURE GRANULOCYTES 0.6 % (0-5); LYMPHOCYTES 7.6 % (15-50); MCH 31.4 pg (26.0-34.0); MCV 89.7 fL (80.0-100.0); MONOCYTES 3.7 % (2-11); PLATELET COUNT 323 10x3/uL (130-400); RBC 4.55 10x6/uL (4.20-6.10); RDW 12.7 % (11.5-14.5); WBC 19.4 10x3/uL (4.8-10.8)
[2018-02-01 04:48] LABS: ALBUMIN 2.8 g/dL (3.4-5.0); ALKALINE PHOSPHATASE 135 U/L (46-116); ALT (SGPT) 85 U/L (10-68); BILIRUBIN - TOTAL 0.56 mg/dL (0.2-1.3); CALCIUM 8.9 mg/dL (8.5-10.1); CARBON DIOXIDE 26.2 mmol/L (21.0-32.0); CHLORIDE - SERUM 101 mmol/L (98-107); CREATININE - SERUM 0.9 mg/dL (0.6-1.3); POTASSIUM - SERUM 4.3 mmol/L (3.5-5.1); PROTEIN - SERUM 7.5 g/dL (6.4-8.2); SODIUM 135 mmol/L (136-145); UREA NITROGEN 24 mg/dL (7-18); eGFR NON AFRICAN AMERICAN > 90 mL/min (90-120)
[2018-02-01 05:02] LABS: CALC OSMOLALITY 277 mosm/kg (275-300); GLUCOSE 167 mg/dL (74-106)
[2018-02-01 05:48] VITALS: BP 100/64
[2018-02-01 08:30] VITALS: BP 108/73
[2018-02-01 12:53] VITALS: BP 130/93
[2018-02-01 16:24] VITALS: BP 117/89
[2018-02-01 20:20] VITALS: BP 138/95
[2018-02-02 01:15] VITALS: BP 105/78
[2018-02-02 05:19] VITALS: BP 124/68
[2018-02-02 06:37] LABS: BASOPHILS 0.1 % (0-2); EOSINOPHILS 0 % (0-7); HEMATOCRIT 41.6 % (42.0-54.0); HEMOGLOBIN 14.5 g/dL (13.5-17.5); IMMATURE GRANULOCYTES 0.7 % (0-5); LYMPHOCYTES 9.1 % (15-50); MCH 31.6 pg (26.0-34.0); MCHC 34.9 g/dL (31.0-37.0); MCV 90.6 fL (80.0-100.0); MEAN PLATELET VOLUME 10.2 fL (7.4-10.4); MONOCYTES 6.3 % (2-11); NEUTROPHILS 83.8 % (40-80); PLATELET COUNT 318 10x3/uL (130-400); RBC 4.59 10x6/uL (4.20-6.10); RDW 12.8 % (11.5-14.5); WBC 18.5 10x3/uL (4.8-10.8)
[2018-02-02 07:17] LABS: ALBUMIN 2.7 g/dL (3.4-5.0); ALKALINE PHOSPHATASE 125 U/L (46-116); ALT (SGPT) 91 U/L (10-68); BILIRUBIN - TOTAL 0.43 mg/dL (0.2-1.3); CALC OSMOLALITY 283 mosm/kg (275-300); CALCIUM 9.1 mg/dL (8.5-10.1); CARBON DIOXIDE 26.7 mmol/L (21.0-32.0); CHLORIDE - SERUM 102 mmol/L (98-107); CREATININE - SERUM 0.8 mg/dL (0.6-1.3); GLUCOSE 144 mg/dL (74-106); POTASSIUM - SERUM 4.3 mmol/L (3.5-5.1); PROTEIN - SERUM 7.3 g/dL (6.4-8.2); SODIUM 139 mmol/L (136-145); UREA NITROGEN 20 mg/dL (7-18); eGFR NON AFRICAN AMERICAN > 90 mL/min (90-120)
[2018-02-02 09:05] VITALS: BP 127/90
[2018-02-02 13:33] VITALS: BP 137/79
[2018-02-02] MEDS ORDERED: FLORAJEN3 CAPS460 MG PO (13:34)
[2018-02-02] MEDS ORDERED: CLEOCIN HCL300 MG PO (13:36)
[2018-02-02 16:27] VITALS: BP 116/82
== END 2018-02-02 16:43 | disposition home or self-care (01) | DRG 153 ==
LOC: OBSVTIME → D.ER 08:50 → D.EDHOLD 12:46 → D.ER 12:50 → D.EDHOLD 12:50 → OBSVTIME 12:51 → D.EDHOLD 17:25 → D.MS 01-31 14:08
PROVIDERS: Emergency Medicine; Family Medicine
DX: J02.9 Acute pharyngitis, unspecified (principal); F31.9 Bipolar disorder, unspecified; F41.9 Anxiety disorder, unspecified

== ENCOUNTER 2018-04-23 08:00 | Emergency (ER) | payer MEDICAID ==
[~2018-04-23] VITALS: Ht 177.8 cm; Wt 91.8 kg
[~2018-04-23 08:00] MED LIST changes: +CLEOCIN HCL300 MG PO; +FLORAJEN3 CAPS460 MG PO
[2018-04-23 08:05] VITALS: Ht 177.8 cm; Wt 91.8 kg
[2018-04-23 08:53] LABS: BASOPHILS 0.2 % (0-2); EOSINOPHILS 1.2 % (0-7); HEMATOCRIT 45.2 % (42.0-54.0); HEMOGLOBIN 15.5 g/dL (13.5-17.5); IMMATURE GRANULOCYTES 0.3 % (0-5); LYMPHOCYTES 19.2 % (15-50); MCH 31.3 pg (26.0-34.0); MCHC 34.3 g/dL (31.0-37.0); MCV 91.1 fL (80.0-100.0); MEAN PLATELET VOLUME 10.3 fL (7.4-10.4); NEUTROPHILS 70.1 % (40-80); RBC 4.96 10x6/uL (4.20-6.10); RDW 13.9 % (11.5-14.5); WBC 11.7 10x3/uL (4.8-10.8)
[2018-04-23 08:54] LABS: APPEARANCE CLEAR (CLEAR); BILIRUBIN NEGATIVE (NEGATIVE); COLOR YELLOW (YELLOW); GLUCOSE NEGATIVE (NEGATIVE); KETONE NEGATIVE (NEGATIVE); NITRITE NEGATIVE (NEGATIVE); PROTEIN NEGATIVE (NEGATIVE); SPECIFIC GRAVITY 1.015 (1.005-1.020); WHITE CELLS - URINE RARE /hpf (0-5)
[2018-04-23 08:55] LABS: BACTERIA FEW /hpf (NONE SEEN); EPITHELIAL CELLS OCC /hpf (0-5)
[2018-04-23 08:55] LABS: PLATELET COUNT 240 10x3/uL (130-400)
[2018-04-23 08:59] LABS: UDS - AMPHET NEGATIVE QUAL (NEGATIVE); UDS - BARB NEGATIVE QUAL (NEGATIVE); UDS - BENZO NEGATIVE QUAL (NEGATIVE); UDS - COCAINE NEGATIVE QUAL (NEGATIVE); UDS - OPIATE NEGATIVE QUAL (NEGATIVE); UDS - PCP NEGATIVE QUAL (NEGATIVE); UDS - THC POSITIVE QUAL (NEGATIVE)
[2018-04-23 09:03] LABS: ALBUMIN 3.7 g/dL (3.4-5.0); ALKALINE PHOSPHATASE 90 U/L (46-116); ALT (SGPT) 21 U/L (10-68); BILIRUBIN - TOTAL 0.67 mg/dL (0.2-1.3); CALC OSMOLALITY 284 mosm/kg (275-300); CALCIUM 8.7 mg/dL (8.5-10.1); CARBON DIOXIDE 26.3 mmol/L (21.0-32.0); CHLORIDE - SERUM 105 mmol/L (98-107); CREATININE - SERUM 0.9 mg/dL (0.6-1.3); PROTEIN - SERUM 7.2 g/dL (6.4-8.2); SODIUM 142 mmol/L (136-145); UREA NITROGEN 20 mg/dL (7-18); eGFR NON AFRICAN AMERICAN > 90 mL/min (90-120)
[2018-04-23 09:05] LABS: GLUCOSE 79 mg/dL (74-106)
[2018-04-23 13:49] VITALS: BP 146/88
== END 2018-04-23 18:28 ==
LOC: D.ER 08:00
PROVIDERS: Emergency Medicine
DX: R45.851 Suicidal ideations (principal); R44.1 Visual hallucinations; R44.0 Auditory hallucinations; R31.9 Hematuria, unspecified; F17.200 Nicotine dependence, unspecified, uncomplicated

== ENCOUNTER 2018-10-17 07:59 | Emergency (ER) | payer MEDICAID ==
[~2018-10-17] VITALS: Ht 177.8 cm; Wt 108.0 kg
[2018-10-17 08:07] VITALS: Ht 177.8 cm; Wt 108.0 kg
[2018-10-17 08:48] LABS: UDS - AMPHET NEGATIVE QUAL (NEGATIVE); UDS - BARB NEGATIVE QUAL (NEGATIVE); UDS - BENZO NEGATIVE QUAL (NEGATIVE); UDS - COCAINE NEGATIVE QUAL (NEGATIVE); UDS - OPIATE NEGATIVE QUAL (NEGATIVE); UDS - PCP NEGATIVE QUAL (NEGATIVE); UDS - THC NEGATIVE QUAL (NEGATIVE)
[2018-10-17 08:57] LABS: ALBUMIN 4.2 g/dL (3.4-5.0); ANION GAP 16.2 mmol/L (8-16); BILIRUBIN - TOTAL 1.03 mg/dL (0.2-1.3); CALCIUM 9.6 mg/dL (8.5-10.1); CARBON DIOXIDE 24.3 mmol/L (21.0-32.0); CREATININE - SERUM 1.2 mg/dL (0.6-1.3); MAGNESIUM - SERUM 1.9 mg/dL (1.8-2.4); POTASSIUM - SERUM 4.5 mmol/L (3.5-5.1); PROTEIN - SERUM 8.1 g/dL (6.4-8.2)
[2018-10-17 09:13] LABS: APPEARANCE HAZY (CLEAR); BACTERIA FEW /hpf (NONE SEEN); BILIRUBIN NEGATIVE (NEGATIVE); COLOR YELLOW (YELLOW); EPITHELIAL CELLS RARE /hpf (0-5); GLUCOSE NEGATIVE (NEGATIVE); KETONE NEGATIVE (NEGATIVE); MUCUS <1+ /lpf (NONE SEEN); NITRITE NEGATIVE (NEGATIVE); PROTEIN NEGATIVE (NEGATIVE); RED CELLS - URINE OCC /hpf (0-5); SPECIFIC GRAVITY 1.025 (1.005-1.020); UROBILINOGEN NORMAL (NORMAL); WHITE CELLS - URINE OCC /hpf (0-5)
--- NOTE | 2018-10-17 09:14 | NUR ---
The patient scores high on the suicide risk assessment and he will require 1:1 observation at this time.
[2018-10-17 09:16] LABS: BASOPHILS 0.2 % (0-2); HEMATOCRIT 47.4 % (42.0-54.0); HEMOGLOBIN 16.6 g/dL (13.5-17.5); IMMATURE GRANULOCYTES 0.4 % (0-5); LYMPHOCYTES 16.4 % (15-50); MCH 30.5 pg (26.0-34.0); MCV 87.1 fL (80.0-100.0); MEAN PLATELET VOLUME 10.1 fL (7.4-10.4); MONOCYTES 8.9 % (2-11); NEUTROPHILS 73.1 % (40-80); PLATELET COUNT 225 10x3/uL (130-400); RBC 5.44 10x6/uL (4.20-6.10); RDW 13.5 % (11.5-14.5); WBC 11.4 10x3/uL (4.8-10.8)
[2018-10-17 17:04] VITALS: BP 127/80
== END 2018-10-17 17:09 | disposition home or self-care (01) ==
LOC: D.ER 07:59
PROVIDERS: Emergency Medicine
DX: R44.0 Auditory hallucinations (principal); F23 Brief psychotic disorder; F32.9 Major depressive disorder, single episode, unspecified; F20.9 Schizophrenia, unspecified

== ENCOUNTER 2019-07-20 20:50 | Emergency (ER) | payer OTHER ==
[~2019-07-20] VITALS: Ht 177.8 cm; Wt 100.7 kg
[2019-07-20 20:55] VITALS: Ht 177.8 cm; Wt 100.7 kg
[2019-07-20] MEDS ORDERED: SEROQUEL300 MG PO ×2 (20:58→21:37)
[2019-07-20] MEDS ORDERED: PROZAC20 MG PO (21:37)
[2019-07-20 21:58] VITALS: BP 128/88
== END 2019-07-20 21:59 | disposition home or self-care (01) ==
LOC: D.ER 20:50
DX: F20.9 Schizophrenia, unspecified (principal); Z76.0 Encounter for issue of repeat prescription

== ENCOUNTER 2019-07-30 20:30 | Emergency (ER) | payer OTHER ==
[~2019-07-30] VITALS: Ht 177.8 cm; Wt 95.5 kg
[~2019-07-30 20:30] MED LIST changes: +SEROQUEL300 MG PO
[2019-07-30 20:45] VITALS: Ht 177.8 cm; Wt 95.5 kg
[2019-07-30] MEDS ORDERED: BUSPAR10 MG PO (20:48)
[2019-07-30 21:29] LABS: BASOPHILS 0.1 % (0-2); EOSINOPHILS 1.2 % (0-7); HEMATOCRIT 47.8 % (42.0-54.0); HEMOGLOBIN 15.8 g/dL (13.5-17.5); IMMATURE GRANULOCYTES 0.4 % (0-5); LYMPHOCYTES 25.9 % (15-50); MCHC 33.1 g/dL (31.0-37.0); MCV 90.9 fL (80.0-100.0); MEAN PLATELET VOLUME 10.1 fL (7.4-10.4); MONOCYTES 10.2 % (2-11); NEUTROPHILS 62.2 % (40-80); PLATELET COUNT 264 10x3/uL (130-400); RBC 5.26 10x6/uL (4.20-6.10); WBC 10.4 10x3/uL (4.8-10.8)
[2019-07-30 21:38] LABS: CALC OSMOLALITY 274 mosm/kg (275-300); CALCIUM 8.9 mg/dL (8.5-10.1); CARBON DIOXIDE 25.2 mmol/L (21.0-32.0); CHLORIDE - SERUM 102 mmol/L (98-107); GLUCOSE 99 mg/dL (74-106); POTASSIUM - SERUM 4.2 mmol/L (3.5-5.1); SODIUM 136 mmol/L (136-145); UREA NITROGEN 20 mg/dL (7-18); eGFR NON AFRICAN AMERICAN 84 mL/min (90-120)
[2019-07-30 21:44] LABS: ALKALINE PHOSPHATASE 106 U/L (30-120); ALT (SGPT) 34 U/L (10-68); BILIRUBIN - TOTAL 0.47 mg/dL (0.2-1.3); MAGNESIUM - SERUM 2.2 mg/dL (1.8-2.4); PROTEIN - SERUM 7.9 g/dL (6.4-8.2)
[2019-07-30 21:46] LABS: BILIRUBIN NEGATIVE (NEGATIVE); GLUCOSE NEGATIVE (NEGATIVE); KETONE NEGATIVE (NEGATIVE); NITRITE NEGATIVE (NEGATIVE); UROBILINOGEN NORMAL (NORMAL)
[2019-07-30 22:00] LABS: UDS - AMPHET NEGATIVE QUAL (NEGATIVE); UDS - BARB NEGATIVE QUAL (NEGATIVE); UDS - BENZO NEGATIVE QUAL (NEGATIVE); UDS - COCAINE NEGATIVE QUAL (NEGATIVE); UDS - OPIATE NEGATIVE QUAL (NEGATIVE); UDS - PCP NEGATIVE QUAL (NEGATIVE); UDS - THC NEGATIVE QUAL (NEGATIVE)
[2019-07-30 22:58] VITALS: BP 125/74
== END 2019-07-30 22:39 | disposition home or self-care (01) ==
LOC: D.ER 20:30
PROVIDERS: Family Medicine
DX: Z76.5 Malingerer [conscious simulation] (principal); M79.18 Myalgia, other site; R53.1 Weakness; W19.XXXA Unspecified fall, initial encounter; Y93.9 Activity, unspecified; Y92.9 Unspecified place or not applicable; R11.10 Vomiting, unspecified; R10.9 Unspecified abdominal pain; M54.2 Cervicalgia; M54.9 Dorsalgia, unspecified

== ENCOUNTER 2019-07-31 10:39 | Emergency (ER) | payer OTHER ==
[~2019-07-31] VITALS: Ht 175.3 cm; Wt 95.5 kg
[~2019-07-31 10:39] MED LIST changes: +BUSPAR10 MG PO
[2019-07-31 10:52] VITALS: Ht 175.3 cm; Wt 95.5 kg
[2019-07-31 11:17] LABS: UDS - AMPHET NEGATIVE QUAL (NEGATIVE); UDS - BARB NEGATIVE QUAL (NEGATIVE); UDS - BENZO NEGATIVE QUAL (NEGATIVE); UDS - COCAINE NEGATIVE QUAL (NEGATIVE); UDS - OPIATE NEGATIVE QUAL (NEGATIVE); UDS - PCP NEGATIVE QUAL (NEGATIVE); UDS - THC NEGATIVE QUAL (NEGATIVE)
[2019-07-31 11:42] LABS: BILIRUBIN NEGATIVE (NEGATIVE); GLUCOSE NEGATIVE (NEGATIVE); KETONE NEGATIVE (NEGATIVE); NITRITE NEGATIVE (NEGATIVE)
[2019-07-31 11:43] LABS: BACTERIA FEW /hpf (NEGATIVE); EPITHELIAL CELLS OCC /hpf (0-5); RED CELLS - URINE 0-5 /hpf (0-5); WHITE CELLS - URINE RARE /hpf (NEGATIVE)
[2019-07-31 12:18] LABS: ALBUMIN 4.3 g/dL (3.4-5.0); ALKALINE PHOSPHATASE 117 U/L (30-120); ALT (SGPT) 33 U/L (10-68); BILIRUBIN - TOTAL 0.85 mg/dL (0.2-1.3); CALC OSMOLALITY 272 mosm/kg (275-300); CARBON DIOXIDE 21.5 mmol/L (21.0-32.0); CHLORIDE - SERUM 100 mmol/L (98-107); GLUCOSE 119 mg/dL (74-106); MAGNESIUM - SERUM 2.3 mg/dL (1.8-2.4); POTASSIUM - SERUM 4.5 mmol/L (3.5-5.1); PROTEIN - SERUM 7.7 g/dL (6.4-8.2); SODIUM 135 mmol/L (136-145); UREA NITROGEN 17 mg/dL (7-18); eGFR NON AFRICAN AMERICAN 84 mL/min (90-120)
[2019-07-31 12:36] LABS: BASOPHILS 0.2 % (0-2); EOSINOPHILS 1.2 % (0-7); HEMATOCRIT 49.9 % (42.0-54.0); HEMOGLOBIN 16.6 g/dL (13.5-17.5); IMMATURE GRANULOCYTES 0.6 % (0-5); LYMPHOCYTES 24.3 % (15-50); MCH 30.7 pg (26.0-34.0); MCHC 33.3 g/dL (31.0-37.0); MCV 92.2 fL (80.0-100.0); MEAN PLATELET VOLUME 10.7 fL (7.4-10.4); MONOCYTES 9.5 % (2-11); NEUTROPHILS 64.2 % (40-80); PLATELET COUNT 233 10x3/uL (130-400); RBC 5.41 10x6/uL (4.20-6.10); RDW 14.5 % (11.5-14.5); WBC 9.6 10x3/uL (4.8-10.8)
[2019-07-31 19:45] VITALS: BP 132/67
== END 2019-07-31 19:45 ==
LOC: D.ER 10:39
PROVIDERS: Family Medicine
DX: R45.850 Homicidal ideations (principal); F31.9 Bipolar disorder, unspecified

== ENCOUNTER 2019-09-02 11:58 | Observation (INO) | payer OTHER ==
[~2019-09-02] VITALS: Ht 152.4 cm; Wt 100.7 kg
--- NOTE | 2019-09-02 12:45 | NUR ---
HEAD OPERATOR [facility] CONTACTED FOR PSYCH SCREEN.
[2019-09-02 12:50] LABS: BILIRUBIN NEGATIVE (NEGATIVE); GLUCOSE NEGATIVE (NEGATIVE); KETONE NEGATIVE (NEGATIVE); NITRITE NEGATIVE (NEGATIVE); UROBILINOGEN NORMAL (NORMAL)
[2019-09-02 12:51] LABS: UDS - AMPHET NEGATIVE QUAL (NEGATIVE); UDS - BARB NEGATIVE QUAL (NEGATIVE); UDS - BENZO NEGATIVE QUAL (NEGATIVE); UDS - COCAINE NEGATIVE QUAL (NEGATIVE); UDS - OPIATE NEGATIVE QUAL (NEGATIVE); UDS - PCP NEGATIVE QUAL (NEGATIVE); UDS - THC NEGATIVE QUAL (NEGATIVE)
[2019-09-02 12:55] LABS: BASOPHILS 0.1 % (0-2); EOSINOPHILS 1.5 % (0-7); HEMATOCRIT 48.8 % (42.0-54.0); HEMOGLOBIN 16.3 g/dL (13.5-17.5); IMMATURE GRANULOCYTES 0.5 % (0-5); LYMPHOCYTES 25.2 % (15-50); MCH 30.2 pg (26.0-34.0); MCHC 33.4 g/dL (31.0-37.0); MCV 90.5 fL (80.0-100.0); MEAN PLATELET VOLUME 10.2 fL (7.4-10.4); MONOCYTES 9.3 % (2-11); NEUTROPHILS 63.4 % (40-80); PLATELET COUNT 239 10x3/uL (130-400); RBC 5.39 10x6/uL (4.20-6.10); RDW 14.3 % (11.5-14.5); WBC 9.2 10x3/uL (4.8-10.8)
[2019-09-02 13:09] LABS: CALC OSMOLALITY 271 mosm/kg (275-300); CALCIUM 8.4 mg/dL (8.5-10.1); CARBON DIOXIDE 24.9 mmol/L (21.0-32.0); CHLORIDE - SERUM 104 mmol/L (98-107); GLUCOSE 105 mg/dL (74-106); POTASSIUM - SERUM 4.1 mmol/L (3.5-5.1); SODIUM 137 mmol/L (136-145); UREA NITROGEN 8 mg/dL (7-18); eGFR NON AFRICAN AMERICAN 84 mL/min (90-120)
[2019-09-02 13:15] LABS: ALBUMIN 3.9 g/dL (3.4-5.0); ALKALINE PHOSPHATASE 133 U/L (30-120); ALT (SGPT) 28 U/L (10-68); BILIRUBIN - TOTAL 0.68 mg/dL (0.2-1.3); MAGNESIUM - SERUM 2.2 mg/dL (1.8-2.4); PROTEIN - SERUM 7.2 g/dL (6.4-8.2)
--- NOTE | 2019-09-02 13:18 | NUR ---
POISON CONTROL CONTACTED. THEY RECOMMEND A SALICYLATE AND TYLENOL LEVEL. RECOMMEND MONITORING PER BEHAVIORAL HEALTH GUIDELINES. NO OTHER SPECIFIC RECOMMENDATIONS.
--- NOTE | 2019-09-02 14:45 | NUR ---
DR. SUE NOTIFIED AND SITTER ORDERED. SITTER AT BEDSIDE. NOTIFIED CHARGE NURSE AND ATTENDING IN REGARDS TO ASSESSMENT FINDINGS. RESOURCES GIVEN TO PT SAFETY PLAN INITIATED.
--- NOTE | 2019-09-02 17:14 | NUR ---
CONTACTED CALL CENTER FOR AN UPDATE ON PT STATUS. [facility] HAS NO BEDS AVAILABLE. NO OTHER CONTACTS MADE.
--- NOTE | 2019-09-02 17:16 | NUR ---
THIS RN CONTACTED [facility], THEY HAVE NO BEDS AT THIS TIME.
--- NOTE | 2019-09-02 18:38 | NUR ---
PT REMAINS CALM/COOPERATIVE. AMBULATES TO BR WITH STEADY GAIT. 1:1 SITTER REMAINS AT BEDSIDE. WILL CONTINUE TO MONITOR.
[2019-09-02 19:00] VITALS: BP 103/76
--- NOTE | 2019-09-02 19:00 | NUR ---
PSYCH FACILITIES REQUESTING NEGATIVE COVID SWAB EVEN THOUGH PT HAS NO S/S.
[2019-09-02 20:00] VITALS: BP 108/75
--- NOTE | 2019-09-02 20:00 | NUR ---
PT RESTING IN ROOM. PROVIDED SANDWICH AND PILLOW PER REQUEST. PT DENIES OTHER NEEDS. SITTER AT BEDSIDE. WILL CONTINUE TO MONITOR.
[2019-09-02 21:00] VITALS: BP 128/94
[2019-09-02 22:00] VITALS: BP 123/97
--- NOTE | 2019-09-03 01:22 | NUR ---
PT ALERT AND ORIENTED UPON ARRIVAL FROM ER. PT STATES HE ATTEMPTED SUICIDE. NO S/S OF DISTRESS. PT INFORMS THIS NURSE THAT 10 YEARS AGO HE RECEIVED 10 UNITS OF BLOOD CAUSE IS GI BLEED. BED LOW CALL LIGHT IN REACH WITH SITTER AT DOOR. WILL CONTINUE TO MONITOR.
[2019-09-03 01:56] VITALS: BP 121/82; Ht 152.4 cm; Wt 100.7 kg
--- NOTE | 2019-09-03 06:42 | NUR ---
RECIEVED A CALL FROM [facility]. PT HAS BEEN ACCEPTED INTO [facility] UNDER ANA MARÍA GONZALEZ,PHD. SHE REQUESTED NO DOC TO DOC. A NUMBER WAS LEFT TO GIVE NURSE TO NURSE [phone]. THIS NURSE HAS CALLED MULTIABLE TIMES AND THE PHONE HAS BEEN BUSY EACH TIME. WILL CONTINUE TO CALL.
--- NOTE | 2019-09-03 08:00 | NUR ---
PT RESTING IN BED WITH EYES OPEN CALL LIGHT IN REACH WILL MONITER
--- NOTE | 2019-09-03 08:45 | NUR ---
I SPOKE WITH DR HAMM AND ASKED FOR DC ORDERS AND TO SIGN TRANSFER FORM OVER THE PHONE. STATES THAT HE CAN DO IT SHORTLY.
--- NOTE | 2019-09-03 09:34 | NUR ---
OVIDIO AT [facility]SFER [facility] TO CALL AND ASK IF COVID TEST BACK YET. I TOLD HER NO AND SHE REPLIES "WE NEED TEST BACK FOR PLACEMENT ANYWHERE". I TRIED TO CALL DAVID HYATT TO LET HER KNOW OF THIS, NO ANSWER.
[2019-09-03 11:08] VITALS: BP 108/82
[2019-09-03 13:09] VITALS: BP 114/87
--- NOTE | 2019-09-03 15:32 | NUR ---
PT RESING IN BED WAITING FOR COVID RESULTS
--- NOTE | 2019-09-03 15:54 | NUR ---
I have reviewed this patient and I concur with the Shift Assessment completed by the Licensed Practical Nurse today this shift.
--- NOTE | 2019-09-03 16:29 | MORECARE ---
CASE MANAGEMENT DISCHARGE SUMMARY PATIENT: GENO RECINOS UNIT: [id number] ADM DATE: 09/02/19 AGE: 49 : 68 SEX: M ROOM/BED: D.2106 AUTHOR: KO MACKAY PHYSICIAN: REFERRING PHYSICIAN: DELILAH RUFF MD DATE OF SERVICE: 09/03/19 Discharge Plan Patient Name: GENO RECINOS [facility] [facility] 1970 Planned Disposition: [facility] Facility Anticipated Discharge Date: 09/03/19 Discharge Date: Expected LOS: 1 Initial Reviewer: [email or web address] Initial Review Date: 09/03/2019 Generated: 09/03/19 5:29 pm DCP- Discharge Planning Updated by [email or web address]: Kendra Gibbons on 09/03/19 1:[address] Patient has been accepted to [facility] pending COVID result. Per [facility], the patient's bed is still available. Patient Name: GNEO RECINOS Page [phone] at 1629 All edits/amendments must be made on the electronic document DICTATION DATE: 09/03/191628 SVP PROGRAMMATIC TV: DENYS 09/03/199 RPT#: [id number] DC DATE: STATUS: ADM IN [facility] [address] [place] [address] END OF REPORT
--- NOTE | 2019-09-04 14:48 | MORECARE ---
CASE MANAGEMENT DISCHARGE SUMMARY PATIENT: GENO RECINOS UNIT: [id number] ADM DATE: 09/02/19 AGE: 49 : 68 SEX: M ROOM/BED: D.2106 AUTHOR: KO MACKAY PHYSICIAN: REFERRING PHYSICIAN: DELILAH RUFF MD DATE OF SERVICE: 09/04/19 Discharge Plan Patient Name: [facility]ENO RECINOS [facility] [facility] 1970 Planned Disposition: Inpatient Psych Facility Anticipated Discharge Date: 09/03/19 Discharge Date: 09/03/2019 Expected LOS: 1 Initial Reviewer: [email or web address] Initial Review Date: 09/03/2019 Generated: 09/04/19 3:48 pm DCP- Discharge Planning Updated by [email or web address]: Kendar Gibbons on 09/03/19 1:[address] Patient has been accepted to [facility] pending COVID result. Per [facility], the patient's bed is still available. Last DP export: 09/03/19 3:29 pm Patient Name: GENO RECINOS Page [phone] at 1448 All edits/amendments must be made on the electronic document DICTATION DATE: 09/04/19 1448 BREAKFAST BAR ATTENDANT: DENYS 09/04/19 1448 RPT#: [id number] DC DATE:09/03/19 STATUS: DIS IN [facility] [address] [place] [address] END OF REPORT
== END 2019-09-03 21:57 | disposition short-term general hospital (02) ==
LOC: D.ER 11:58 → D.M2 23:37 → OBSVTIME 23:37 → D.M2 09-03 21:57
PROVIDERS: Family Medicine; ADMIT Family Medicine; ATTEND Family Medicine
DX: R45.851 Suicidal ideations (principal); F31.9 Bipolar disorder, unspecified; F20.9 Schizophrenia, unspecified; F41.8 Other specified anxiety disorders; G35 Multiple sclerosis; G47.33 Obstructive sleep apnea (adult) (pediatric)

== ENCOUNTER 2019-10-04 00:49 | Emergency (ER) | payer OTHER ==
[~2019-10-04] VITALS: Ht 152.4 cm; Wt 113.6 kg
[2019-10-04 00:57] VITALS: Ht 152.4 cm; Wt 113.6 kg
[2019-10-04 01:23] LABS: BILIRUBIN NEGATIVE (NEGATIVE); GLUCOSE NEGATIVE (NEGATIVE); KETONE NEGATIVE (NEGATIVE); NITRITE NEGATIVE (NEGATIVE); UROBILINOGEN NORMAL (NORMAL)
[2019-10-04 01:30] LABS: BASOPHILS 0.1 % (0-2); EOSINOPHILS 0.7 % (0-7); HEMATOCRIT 47.9 % (42.0-54.0); HEMOGLOBIN 16.6 g/dL (13.5-17.5); IMMATURE GRANULOCYTES 0.4 % (0-5); LYMPHOCYTES 22.3 % (15-50); MCH 31.1 pg (26.0-34.0); MCHC 34.7 g/dL (31.0-37.0); MCV 89.9 fL (80.0-100.0); MEAN PLATELET VOLUME 10.1 fL (7.4-10.4); MONOCYTES 9.8 % (2-11); NEUTROPHILS 66.7 % (40-80); PLATELET COUNT 249 10x3/uL (130-400); RBC 5.33 10x6/uL (4.20-6.10); RDW 13.3 % (11.5-14.5); WBC 16.2 10x3/uL (4.8-10.8)
[2019-10-04 01:35] LABS: ANION GAP 11.8 mmol/L (8-16); CALCIUM 9.3 mg/dL (8.5-10.1); CREATININE - SERUM 1.2 mg/dL (0.6-1.3); POTASSIUM - SERUM 3.8 mmol/L (3.5-5.1)
[2019-10-04 01:40] LABS: UDS - AMPHET NEGATIVE QUAL (NEGATIVE); UDS - BARB NEGATIVE QUAL (NEGATIVE); UDS - BENZO NEGATIVE QUAL (NEGATIVE); UDS - COCAINE NEGATIVE QUAL (NEGATIVE); UDS - OPIATE NEGATIVE QUAL (NEGATIVE); UDS - PCP NEGATIVE QUAL (NEGATIVE); UDS - THC POSITIVE QUAL (NEGATIVE)
[2019-10-04 01:40] LABS: ALBUMIN 4.3 g/dL (3.4-5.0); BILIRUBIN - TOTAL 0.79 mg/dL (0.2-1.3); MAGNESIUM - SERUM 2.2 mg/dL (1.8-2.4); PROTEIN - SERUM 7.8 g/dL (6.4-8.2)
--- NOTE | 2019-10-04 02:08 | NUR ---
DR. SUE NOTIFIED AND REVIEWED PT'S BEHAVIOR AND ASSESMENT RESULTS. PT IS A LOW RISK PER DR. SUE. DR. SUE STATED TO GIVE RESOURCES TO PT AT TIME OF DISCHARGE. NO FURTHER ORDERS AT THIS TIME. RESOURCES REVIEWED WITH PT AND HE VERBALIZED UNDERSTANDING.
[2019-10-04 08:40] VITALS: BP 132/78
== END 2019-10-04 08:41 ==
LOC: D.ER 00:49
PROVIDERS: Family Medicine
DX: R44.0 Auditory hallucinations (principal); R45.851 Suicidal ideations

== ENCOUNTER 2019-10-18 03:57 | Emergency (ER) | payer OTHER ==
[~2019-10-18] VITALS: Ht 152.4 cm; Wt 105.5 kg
[2019-10-18 04:07] VITALS: Ht 152.4 cm; Wt 105.5 kg
[2019-10-18] MEDS ORDERED: THORAZINE10 MG (04:10)
[2019-10-18 04:50] LABS: BASOPHILS 0.2 % (0-2); EOSINOPHILS 1.7 % (0-7); HEMATOCRIT 43.8 % (42.0-54.0); HEMOGLOBIN 14.8 g/dL (13.5-17.5); IMMATURE GRANULOCYTES 0.4 % (0-5); LYMPHOCYTES 24.6 % (15-50); MCH 30.7 pg (26.0-34.0); MCHC 33.8 g/dL (31.0-37.0); MCV 90.9 fL (80.0-100.0); MEAN PLATELET VOLUME 9.7 fL (7.4-10.4); MONOCYTES 13.2 % (2-11); NEUTROPHILS 59.9 % (40-80); PLATELET COUNT 216 10x3/uL (130-400); RBC 4.82 10x6/uL (4.20-6.10); RDW 13.1 % (11.5-14.5); WBC 11.1 10x3/uL (4.8-10.8)
[2019-10-18 05:01] LABS: CALC OSMOLALITY 273 mosm/kg (275-300); CALCIUM 8.3 mg/dL (8.5-10.1); CARBON DIOXIDE 26.3 mmol/L (21.0-32.0); CHLORIDE - SERUM 102 mmol/L (98-107); GLUCOSE 89 mg/dL (74-106); POTASSIUM - SERUM 3.7 mmol/L (3.5-5.1); SODIUM 138 mmol/L (136-145); UREA NITROGEN 11 mg/dL (7-18); eGFR NON AFRICAN AMERICAN 84 mL/min (90-120)
[2019-10-18 05:10] LABS: ALBUMIN 3.6 g/dL (3.4-5.0); ALKALINE PHOSPHATASE 96 U/L (30-120); ALT (SGPT) 28 U/L (10-68); AMYLASE - SERUM 37 U/L (25-115); BILIRUBIN - TOTAL 1.16 mg/dL (0.2-1.3); LIPASE 133 U/L (73-393); PROTEIN - SERUM 6.8 g/dL (6.4-8.2)
[2019-10-18 05:12] LABS: TROPONIN-I < 0.017 ng/mL (0.000-0.060)
[2019-10-18 06:19] LABS: BILIRUBIN NEGATIVE (NEGATIVE); GLUCOSE NEGATIVE (NEGATIVE); KETONE NEGATIVE (NEGATIVE); NITRITE NEGATIVE (NEGATIVE); UROBILINOGEN NORMAL (NORMAL)
[2019-10-18 06:41] VITALS: BP 104/79
== END 2019-10-18 07:01 | disposition home or self-care (01) ==
LOC: D.ER 03:57
PROVIDERS: Family Medicine
DX: K31.89 Other diseases of stomach and duodenum (principal); J44.9 Chronic obstructive pulmonary disease, unspecified; F17.210 Nicotine dependence, cigarettes, uncomplicated

== ENCOUNTER 2019-10-19 00:36 | Emergency (ER) | payer OTHER ==
[~2019-10-19] VITALS: Ht 152.4 cm; Wt 106.4 kg
[~2019-10-19 00:36] MED LIST changes: +THORAZINE10 MG
[2019-10-19 00:42] VITALS: Ht 152.4 cm; Wt 106.4 kg
[2019-10-19 01:01] LABS: BASOPHILS 0.2 % (0-2); EOSINOPHILS 1.7 % (0-7); HEMATOCRIT 46.3 % (42.0-54.0); HEMOGLOBIN 15.6 g/dL (13.5-17.5); IMMATURE GRANULOCYTES 0.4 % (0-5); LYMPHOCYTES 28.9 % (15-50); MCH 30.2 pg (26.0-34.0); MCHC 33.7 g/dL (31.0-37.0); MCV 89.6 fL (80.0-100.0); MEAN PLATELET VOLUME 9.4 fL (7.4-10.4); MONOCYTES 12.9 % (2-11); NEUTROPHILS 55.9 % (40-80); PLATELET COUNT 252 10x3/uL (130-400); RBC 5.17 10x6/uL (4.20-6.10); RDW 13.2 % (11.5-14.5); WBC 10.9 10x3/uL (4.8-10.8)
[2019-10-19 01:09] LABS: ANION GAP 13.5 mmol/L (8-16); CARBON DIOXIDE 26.2 mmol/L (21.0-32.0); CREATININE - SERUM 1.3 mg/dL (0.6-1.3); POTASSIUM - SERUM 3.7 mmol/L (3.5-5.1)
[2019-10-19 01:14] LABS: ALBUMIN 4.2 g/dL (3.4-5.0); BILIRUBIN - TOTAL 0.89 mg/dL (0.2-1.3); MAGNESIUM - SERUM 2.2 mg/dL (1.8-2.4); PROTEIN - SERUM 7.9 g/dL (6.4-8.2)
[2019-10-19 01:45] LABS: BILIRUBIN NEGATIVE (NEGATIVE); GLUCOSE NEGATIVE (NEGATIVE); KETONE NEGATIVE (NEGATIVE); NITRITE NEGATIVE (NEGATIVE); UROBILINOGEN NORMAL (NORMAL)
[2019-10-19 01:51] LABS: UDS - AMPHET NEGATIVE QUAL (NEGATIVE); UDS - BARB NEGATIVE QUAL (NEGATIVE); UDS - BENZO NEGATIVE QUAL (NEGATIVE); UDS - COCAINE NEGATIVE QUAL (NEGATIVE); UDS - OPIATE NEGATIVE QUAL (NEGATIVE); UDS - PCP NEGATIVE QUAL (NEGATIVE); UDS - THC POSITIVE QUAL (NEGATIVE)
--- NOTE | 2019-10-19 02:08 | NUR ---
DR. SUE NOTIFIED AND SITTER ORDERED. SITTER AT BEDSIDE. NOTIFIED CHARGE NURSE AND ATTENDING IN REGARDS TO ASSESSMENT FINDINGS. RESOURCES GIVEN TO PT AND SAFETY PLAN INITIATED.
[2019-10-19 04:56] VITALS: BP 132/89
== END 2019-10-19 05:38 ==
LOC: D.ER 00:36
PROVIDERS: Family Medicine
DX: R45.851 Suicidal ideations (principal); R44.0 Auditory hallucinations; J44.9 Chronic obstructive pulmonary disease, unspecified; Z72.0 Tobacco use

== ENCOUNTER 2019-11-04 20:48 | Emergency (ER) | payer OTHER ==
[~2019-11-04] VITALS: Ht 152.4 cm; Wt 113.6 kg
[2019-11-04 21:02] VITALS: Ht 152.4 cm; Wt 113.6 kg
[2019-11-04 21:41] LABS: BASOPHILS 0.2 % (0-2); EOSINOPHILS 1.2 % (0-7); HEMATOCRIT 44.8 % (42.0-54.0); HEMOGLOBIN 15.1 g/dL (13.5-17.5); IMMATURE GRANULOCYTES 0.5 % (0-5); LYMPHOCYTES 21.6 % (15-50); MCH 30.3 pg (26.0-34.0); MCHC 33.7 g/dL (31.0-37.0); MEAN PLATELET VOLUME 9.6 fL (7.4-10.4); MONOCYTES 8.8 % (2-11); NEUTROPHILS 67.7 % (40-80); PLATELET COUNT 254 10x3/uL (130-400); RBC 4.98 10x6/uL (4.20-6.10); RDW 13.4 % (11.5-14.5); WBC 12.2 10x3/uL (4.8-10.8)
[2019-11-04 21:43] LABS: BILIRUBIN NEGATIVE (NEGATIVE); KETONE NEGATIVE (NEGATIVE); NITRITE NEGATIVE (NEGATIVE); UROBILINOGEN NORMAL (NORMAL)
[2019-11-04 21:49] LABS: ANION GAP 9.2 mmol/L (8-16); CALCIUM 9.2 mg/dL (8.5-10.1); CARBON DIOXIDE 26.8 mmol/L (21.0-32.0); CREATININE - SERUM 1.2 mg/dL (0.6-1.3)
[2019-11-04 21:52] LABS: BILIRUBIN - TOTAL 0.87 mg/dL (0.2-1.3); MAGNESIUM - SERUM 1.9 mg/dL (1.8-2.4); PROTEIN - SERUM 7.6 g/dL (6.4-8.2)
[2019-11-04 21:52] LABS: UDS - AMPHET NEGATIVE QUAL (NEGATIVE); UDS - BARB NEGATIVE QUAL (NEGATIVE); UDS - BENZO NEGATIVE QUAL (NEGATIVE); UDS - COCAINE NEGATIVE QUAL (NEGATIVE); UDS - OPIATE NEGATIVE QUAL (NEGATIVE); UDS - PCP NEGATIVE QUAL (NEGATIVE); UDS - THC NEGATIVE QUAL (NEGATIVE)
--- NOTE | 2019-11-04 22:54 | NUR ---
DR SUE NOTIFIED AND SITTER ORDERED, SITTER AT BEDSIDE. NOTIFIED CHARGE NURSE AND ATTENDING IN REGARDS TO ASSESSMENT FINDINGS. RESOURCES GIVEN TO PT AND SAFETY PLAN INITIATED.
[2019-11-05] VITALS: BP 133/80
== END 2019-11-05 03:39 ==
LOC: D.ER 20:48
PROVIDERS: Family Medicine
DX: F20.9 Schizophrenia, unspecified (principal); F31.9 Bipolar disorder, unspecified; J44.9 Chronic obstructive pulmonary disease, unspecified